=== PATIENT | female | born 1975 | race Caucasian/White ===

== ENCOUNTER 2018-12-20 13:32 | Emergency (ER) | payer MEDICAID ==
[~2018-12-20] VITALS: Ht 152.4 cm; Wt 62.5 kg
[2018-12-20 13:53] VITALS: Ht 152.4 cm; Wt 62.5 kg
--- NOTE | 2018-12-20 15:19 | ERD ---
ER Documentation Chief Complaint Chief Complaint Painful abscess R posterior head X 12 days HPI 43-year-old female, with history of diabetes, presents the emergency department, complaining of 1 week with progressive, painful lesion on the occipital scalp. The patient denies fever, no chills, the lesion is started draining purulent material 2 days ago, but persist with pain and induration of the area. The patient denies blurred vision, no distal weakness, numbness or tingling. ROS All systems reviewed and are negative except as per history of present illness. Medications Home Meds Active Scripts Ibuprofen* (Motrin*) 600 Mg Tab, 600 MG PO Q8, #15 TAB Prov:PIEDAD DIAZ MD 12/20/18 Sulfamethoxazole/Trimethoprim* (Bactrim Ds* Tablet) 1 Each Tablet, 1 TAB PO BID, #14 TAB Prov:PIEDAD DIAZ MD 12/20/18 Cephalexin* (Cephalexin*) 500 Mg Capsule, 500 MG PO BID for 7 Days, #14 CAP Prov:PIEDAD DIAZ MD 12/20/18 Allergies Allergies: Coded Allergies: No Known Allergy (Unverified , 12/20/18) PMhx/Soc History of Surgery: Yes (hernia repair) Anesthesia Reaction: No Hx Neurological Disorder: No Hx Respiratory Disorders: No Hx Cardiac Disorders: No Hx Psychiatric Problems: No Hx Miscellaneous Medical Probl: No Hx Alcohol Use: No Hx Substance Use: No Hx Tobacco Use: No Smoking Status: Never smoker FmHx Family History: diabetes; No coronary disease Physical Exam Vitals Vital Signs Date Temp Pulse Resp B/P (MAP) Pulse Ox O2 O2 Flow FiO2 Time Delivery Rate 12/20/18 97.4 84 18 124/81 100 13:53 (95) Physical Exam Const: No acute distress Head: Atraumatic, occipital scalp area with 1 cm area of induration with central opening and active mild purulent discharge. Eyes: Normal Conjunctiva ENT: Normal External Ears, Nose and Mouth. Neck: Full range of motion. No meningismus. Resp: Clear to auscultation bilaterally Cardio: Regular rate and rhythm, no murmurs Abd: Soft, non tender, non distended. Normal bowel sounds Skin: No petechiae or rashes Back: No midline or flank tenderness Ext: No cyanosis, or edema Neur: Awake and alert Psych: Normal Mood and Affect Results 24 hrs Current Medications Medications Dose Sig/Sonali Start Time Status Last (Trade) Ordered Route PRN Stop Time Admin Dose Reason Admin Ibuprofen 400 mg ONCE ONCE 12/20/18 DC 12/20/18 (Motrin) PO 15:30 12/20/18 15:25 15:31 650 mg ONCE ONCE 12/20/18 DC 12/20/18 Acetaminophen PO 15:30 12/20/18 15:25 (Tylenol 15:31 Tab) Procedures/MDM Vital signs stable. Differential diagnosis considered include but not limited to: Cellulitis, abscess, lipoma, neoplasm. Low suspicion for acute systemic infection. Physical examination and clinical presentation consistent most likely with abscess of the scalp, already draining, therefore, incision and drainage not indicated at this time. During the ED course the patient remained stable, no new complaints. The patient received treatment with Tylenol and Motrin. Results and clinical impression discussed with the patient who agrees with management. The patient is stable to be treated outpatient and will be discharged home, some side effects of prescribed medications (headache, rash, nausea, vomiting, diarrhea, drowsiness, habituation, bleeding, hypertension, interactions with other medications) were reviewed. The patient was instructed to follow up with the primary care provider in the next 48h. If symptoms persist, worsen or new symptoms develop, then patient should return to the ED immediately. Instructions explained and given directly by me to the patient with acknowledgment and demonstrated understanding. Disclaimer: Inadvertent spelling and grammatical errors are likely due to EHR/dictation software use and do not reflect on the overall quality of patient care. Also, please note that the electronic time recorded on this note does not necessarily reflect the actual time of the patient encounter. Departure Diagnosis: Primary Impression: Abscess or cellulitis of scalp Condition: Stable Additional Instructions: Muchas tori por [facility] para murry servicio. Esperamos que en murry visita a la zoya de emergencia murry problema medico haya sido solucionado y que se sienta mucho mejor. Para estar seguros que murry mejoria sigue en proceso, le pedimos el favor de hacer nikole nasrin de seguimiento medico con murry doctor primario en los proximos 2-4 noble. Lleve con usted estos documentos y las medicinas recetadas. Si alex sintomas empeoran, NO SE ESPERE, por favor regrese a zoya de emergencia INMEDIATAMENTE. En anna marie que usted no tenga un mdico de atencin primaria: Llame al mdico o clnica comunitaria de referencia que aparece abajo len las horas de consultorio para hacer nikole nasrin para que le vean. CLINICAS: [facility] [phone] [id number] [facility] [phone] [facility] [phone] [facility] [phone] [id number] [facility]. [facility] [phone] [address] [facility]. [phone] PIEDAD BLACK MD December 20, 2018 15:19
[2018-12-20] MEDS ORDERED: CEPH500C PO (15:21)
[2018-12-20] MEDS ORDERED: SULF1TAB31 PO (15:21)
[2018-12-20] MEDS ORDERED: IBUP-1542 PO (15:21)
[2018-12-20] MEDS ORDERED: ACETAMINOPHEN 325 MG TAB PO ONE (15:30)
[2018-12-20] MEDS ORDERED: IBUPROFEN 200 MG TAB PO ONE (15:30)
== END 2018-12-20 16:36 | disposition home or self-care (01) ==
LOC: FTE 13:32
DX: L02.811 Cutaneous abscess of head [any part, except face] (principal); E11.9 Type 2 diabetes mellitus without complications
CPT/HCPCS: Z7502; Z7610; 99283